=== PATIENT | male | born 1985 | race Caucasian/White ===

== ENCOUNTER 2017-05-15 10:36 | Emergency (ER) | payer MEDICAID ==
[~2017-05-15] VITALS: Ht 162.6 cm; Wt 77.1 kg
[2017-05-15 13:38] VITALS: BP 133/82
== END 2017-05-15 13:38 | disposition home or self-care (01) ==
LOC: ED 10:36
DX: S08.0XXA Avulsion of scalp, initial encounter (principal); S00.411A Abrasion of right ear, initial encounter; M25.511 Pain in right shoulder; V27.4XXA Motorcycle driver injured in collision with fixed or stationary object in traffic accident, initial encounter; Y93.55 Activity, bike riding; Y99.8 Other external cause status; Y92.410 Unspecified street and highway as the place of occurrence of the external cause
CPT/HCPCS: J1885

== ENCOUNTER 2017-09-03 14:38 | Emergency (ER) | payer SELFPAY ==
[~2017-09-03] VITALS: Ht 162.6 cm; Wt 78.5 kg
[2017-09-03 15:05] VITALS: Ht 162.6 cm; Wt 78.5 kg
[2017-09-03 17:37] VITALS: BP 145/111
== END 2017-09-03 17:37 | disposition home or self-care (01) ==
LOC: ED 14:38
DX: J02.9 Acute pharyngitis, unspecified (principal); Z88.0 Allergy status to penicillin
CPT/HCPCS: 87491; 87591; J1100

== ENCOUNTER 2018-06-28 07:37 | Emergency (ER) | payer SELFPAY ==
[~2018-06-28] VITALS: Ht 157.5 cm; Wt 83.0 kg
[2018-06-28 07:54] VITALS: Ht 157.5 cm; Wt 83.0 kg
[2018-06-28 08:31] VITALS: BP 151/110
== END 2018-06-28 08:31 | disposition home or self-care (01) ==
LOC: ED 07:37
DX: J02.9 Acute pharyngitis, unspecified (principal); R07.81 Pleurodynia; I10 Essential (primary) hypertension; Z88.0 Allergy status to penicillin

== ENCOUNTER 2018-09-20 11:09 | Emergency (ER) | payer SELFPAY ==
[~2018-09-20] VITALS: Ht 162.6 cm; Wt 84.8 kg
[2018-09-20 13:26] VITALS: BP 156/107
== END 2018-09-20 13:26 | disposition home or self-care (01) ==
LOC: ED 11:09
DX: K14.0 Glossitis (principal); I10 Essential (primary) hypertension; Z88.0 Allergy status to penicillin